=== PATIENT | male | born 1950 | race Caucasian/White ===

== ENCOUNTER → 2020-09-19 | Outpatient (CLI) | payer OTHER ==
[~2020-09-19] MED LIST: AMLODIPINE BESY10 MG PO; ASA81BEC PO; BUPROPION XL300 MG PO; BUSPAR30 MG PO; CALCIUM CITRAT1 EA14 PO; CENTRUM SILVER1 EAC5 PO; CINNAMON500 MG PO; DULOXETINE HCL60 MG PO; GINKGO60 MG PO; LORATIDINE 10 M10 M1 PO; LOSARTAN POTAS100 MG PO; MELOXICAM7.5 MG PO; NEURONTIN 300M300 M2 PO; OMEPRAZOLE 20 M20 M1 PO; PERCOCET 5-3251 EACH PO; PRAVACHOL 20 MG20 M1 PO; TURMERIC500 M2 PO; VITAMIN C1000 MG PO
[2020-09-19 11:14] LABS: HEMATOCRIT 43.1 % (42.0-52.0); HEMOGLOBIN 14.3 gm/dL (14.0-18.0); MCH 32.3 pg (26.0-34.0); MCHC 33.2 g/dL (28.0-37.0); MCV 97.2 fL (80.0-100.0); RBC 4.44 mil/uL (4.50-6.00); RDW 13.1 % (10.5-14.5); WBC 8.1 thou/uL (4.0-11.0)
[2020-09-19 11:20] LABS: URINE BLOOD NEGATIVE (Negative); URINE CLARITY CLEAR; URINE COLOR YELLOW; URINE GLUCOSE-RANDOM* NEGATIVE (Negative); URINE KETONES NEGATIVE (Negative); URINE LEUKOCYTES-REFLEX NEGATIVE (Negative); URINE NITRITE-REFLEX NEGATIVE (Negative); URINE PROTEIN (DIPSTICK) TRACE (Negative); URINE SPECIFIC GRAVITY >= 1.030 (1.005-1.035); URINE UROBILINOGEN 0.2 E.U./dl (0.2-1.0)
[2020-09-19 11:22] LABS: ICTOTEST (BILI CONFIRMATORY) Negative (Negative); URINE BILIRUBIN NEGATIVE (Negative)
[2020-09-19 11:23] LABS: ALBUMIN 3.9 g/dL (3.4-5.0); CALCIUM 9.8 mg/dL (8.5-10.1); CREATININE 1.4 mg/dL (0.7-1.3); POTASSIUM 4.4 mmol/L (3.5-5.1)
[2020-09-19 11:45] LABS: PROTIME 10.9 Seconds (10.5-12.1)
--- NOTE | 2020-09-19 13:07 | EKG ---
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[facility] : 1950 Requested By: Jose Antonio Saavedra Order Number: [id number] MD: Alex Tabares Measurements Intervals [place] Rate: 74 P: 14 UT: 189 QRS: -54 QRSD: 101 T: 56 QT: 375 QTc: 416 Interpretive Statements Sinus rhythm Left anterior fascicular block Consider right ventricular hypertrophy Baseline wander in lead(s) V2 No previous ECG available for comparison Electronically Signed On 09-19-2020 13:07:09 CDT by Alex Tabares [email or web address] <ELECTRONICALLY SIGNED> By: Alex Tabares MD, [facility] 09/19/20 1307 D: [id number] Alex Tabares MD, FACC /EPI
--- NOTE | 2020-09-20 07:17 | EKG ---
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 : 1950 Requested By: Jose Antonio Saavedra Order Number: [id number] MD: Alex Tabares Measurements Intervals [place] Rate: 72 P: 38 NM: 176 QRS: -76 QRSD: 100 T: 13 QT: 387 QTc: 424 Interpretive Statements Sinus rhythm Left anterior fascicular block Consider posterior infarct Nonspecific ST depression Baseline wander in lead(s) I,II,III,aVR,aVL,aVF,V1,V2,V3,V4,V5,V6 No previous ECG available for comparison Electronically Signed On 09-20-2020 7:17:00 CDT by Alex Tabares [email or web address] <ELECTRONICALLY SIGNED> By: Alex Tabares MD, FAC 09/20/20 0717 1114 [id number] Alex Tabares MD, [facility] /EPI
== END ==
LOC: PAC 10:25
PROVIDERS: ATTEND Orthopaedic Surgery
DX: Z01.812 Encounter for preprocedural laboratory examination (principal); Z01.810 Encounter for preprocedural cardiovascular examination; I44.4 Left anterior fascicular block; I21.29 ST elevation (STEMI) myocardial infarction involving other sites

== ENCOUNTER 2020-09-30 10:20 | Inpatient (IN) | payer OTHER ==
[~2020-09-30] VITALS: Ht 175.3 cm; Wt 98.8 kg
[2020-09-30 11:20] VITALS: BP 121/71
[2020-09-30 16:33] VITALS: BP 100/58
--- NOTE | 2020-09-30 17:23 | NUR ---
ASSUMED PT CARE THIS AM. PT A&OX4, ABLE TO MAKE NEEDS KNOWN. PATIENT REPORTING NO PAIN AT THE TIME OF ASSESSMENT ALONG WITH NO NUMBNESS OR TINGLING. IV PATENT. PATIENT IS ON 2 LITERS OF OXYGEN VIA NC. FALL PRECAUTIONS ARE IN PLACE, CALL LIGHT WITHIN REACH.
[2020-09-30 19:36] VITALS: BP 109/64
[2020-10-01 04:19] VITALS: BP 112/59
[2020-10-01] MEDS ORDERED: TRI-BUFFERED A325 M1 PO (07:39)
[2020-10-01] MEDS ORDERED: PERCOCET 10-321 EACH PO (07:39)
[2020-10-01] MEDS ORDERED: MS CONTIN15 MG PO (07:39)
--- NOTE | 2020-10-01 07:44 | O ---
[facility] [place] [address] OPERATIVE REPORT Name: EDINSON VÁSQUEZ Room #: 441-P [facility] M.R.#: [id number] Admission: 09/30/20 Attend Phys: Jose Antonio Saavedra MD Discharge: Date of : 48 Report #: [id number] THIS REPORT FOR: cc: Henry Stein MD, Steven M. MD Abraham, Scott M. MD ~ DATE OF SERVICE: 09/30/2020 PREOPERATIVE DIAGNOSIS: Left hip osteoarthritis. POSTOPERATIVE DIAGNOSIS: Left hip osteoarthritis. PROCEDURE: Left total hip arthroplasty. SURGEON: Jose Antonio Saavedra M.D. ANESTHESIA: LMA. IMPLANTS: A [employer]hew size 15 high offset Synergy press-fit stem, a size 56 R3 acetabular cup with two acetabular screws and a size 40+0 cobalt chrome head as well as a single Accord cerclage cable for prophylactic femur fixation. ESTIMATED BLOOD LOSS: 150 mL COMPLICATIONS: None. SPECIMENS: None. CONDITION UPON LEAVING THE OR: Stable. INDICATIONS FOR PROCEDURE: The patient is a 70-year-old gentleman with severe left hip osteoarthritis. He had failed conservative measures for this and after discussion with him, he elected for left total hip arthroplasty. DESCRIPTION OF PROCEDURE: Risks, benefits, alternatives, complications were discussed in detail with the patient including but not limited to risk of anesthesia, risk of damage to nerves, arteries, blood vessels, risk for infection, bleeding, risk for continued hip pain, leg length discrepancy, DVT, PE, and need for reoperation. Informed consent was obtained from the patient. Left hip was appropriately marked in the preoperative holding area. IV Ancef was given for preoperative antibiotics. He was brought to the operating room and placed in supine position on the operating room table. LMA anesthesia was induced without complication. He was then placed in the right lateral decubitus position with the left hip uppermost. Left hip and lower extremity were prepped and draped in normal sterile fashion. Timeout was performed properly identifying the patient and procedure as well as instrumentation and implants. [address] [address] OPERATIVE REPORT Name: FAHADEDINSON Ricardo Room #: 441-P [facility] M.R.#: [id number] Admission: 09/30/20 Attend Phys: Jose Antonio Saavedra MD Discharge: Date of : 48 Report #: [id number] All in the operating room in agreement. Standard posterior approach to the hip was made with 10 blade through the skin. Dissection was taken down to the fascia with Bovie cautery and Mcguire elevator was used to clean off the fascia. Fresh 10 blade was used to make a fascial incision. This was taken proximally and distally with curved Garcia scissor. Charnley retractor was placed. Trochanteric bursa was taken down with Bovie cautery. Piriformis tendon was identified, tagged and taken down with Bovie cautery. Short external rotators were also taken down with Bovie cautery. ____ and proximal ends were tagged for later repair. Hip was dislocated. There was extensive osteoarthritic change of the femoral head with partial collapse of the femoral head. Femoral neck cut was made 1 cm proximal to the lesser trochanter based on preoperative templating and femoral head was removed. Deep acetabular retractors were placed. Labrum was removed sharply. Pulvinar was removed with Bovie cautery. Acetabulum was then sequentially reamed up to a size 56, at which point there was excellent bleeding cancellous bone. A size 55 trial cup was placed, found to have a good fit. Final size 56 R3 acetabular cup was placed and seated. Two acetabular screws were placed for backup fixation and a polyethylene liner for a 40 head was placed. Attention was then turned to the femur. This was reamed and broached up to a size 15, at which point the size 15 broach was stable. This was trialed with a high offset neck and a 40+0 head. Hip was reduced, taken through range of motion, found to be stable, found to have equal leg lengths. Hip was dislocated. Broach was removed. The single Accord cerclage cable was placed proximal to the lesser trochanter and tensioned and tightened. After prophylactic fixation, a final size 15 high offset Synergy press-fit stem was placed and seated. This was trialed again with a 40+0 head. Hip was reduced, taken through range of motion, found to be stable, and found to have equal leg lengths. Hip was dislocated one last time. A trial head was removed and a final size 40+0 cobalt chrome head was placed. Hip was reduced, taken through range of motion, found to be stable, and found to have equal leg lengths. The wound was thoroughly irrigated with normal saline. A periarticular injection consisting of morphine, ropivacaine, epinephrine, Toradol was placed around the hip joint capsule. A gram of vancomycin was placed deep in the joint capsule and piriformis were repaired with 0 FiberWire. Fascia was closed with 0 Vicryl. Skin was closed with 2-0 Vicryl. Skin staple and a HELEN dressing was applied. The patient tolerated this procedure well and went to recovery room under care of anesthesia postoperatively. <ELECTRONICALLY SIGNED> By: Jose Antonio Saavedra MD 10/01/20 0744 1604 [id number] Jose Antonio Saavedra MD /nt
[2020-10-01 07:51] VITALS: BP 117/67
--- NOTE | 2020-10-01 07:54 | NUR ---
ASSUMED CARE OF PT AT 1925 ON 09/30/20. PT IS A&OX4. IS ON 2L OF O2/NC. IS STABLE. REPORTS PAIN IN LEFT HIP THAT IS BEING MANAGED WITH PAIN MEDS, ICE PACK, & OTHER THERAPUETIC TECHNIQUES. HELEN DRSG C/D/I. PT IS ABLE TO MOVE SELF IN BED. HOWEVER, PAIN MAKES IT DIFFICULT. PT VOIDS PER URINAL. FALL PRECAUTIONS & HOURLY ROUNDING CONTINUED THIS SHIFT. LABS & VITALS REVIEWED. SCDS & TEDS IN PLACE. PT IS ABLE TO WIGGLE TOES. COLOR APPROPRIATE FOR ETHNICITY. CAP REFILL <3 SECONDS. DENIES N/T. CALL LIGHT WITHIN REACH. IN BED. WILL CONTINUE TO MONITOR.
--- NOTE | 2020-10-01 09:57 | NUR ---
ASSUMED PT CARE THIS AM. PT A&OX4, ABLE TO MAKE NEEDS KNOWN. PATIENT ON ROOM AIR. REPORTING PAIN IN THE HIP THAT DECREASES WITH PAIN MEDICATION GIVEN PER EMAR. PATIENT REPORTS NO NUMBNESS OR TINGLING. IV PATENT, FLUIDS INFUSING. FALL PRECAUTIONS ARE IN PLACE, CALL LIGHT WITHIN REACH.
--- NOTE | 2020-10-01 10:40 | NUR ---
assessment: CM REVIEWED CHART AND SPOKE WITH PATIENT AT THE BEDSIDE. PT IS ALERT AND ORIENTED X4. PT REPORTS THAT HE LIVES IN A HOUSE WITH HIS . PT IS S/P LEFT HIP TOTAL ARTHOPLASTY. PT REPORTS HAVING 2 STEPS WITH NO HANDRAIL TO ENTER THE HOME AND NO STEPS HE HAS TO USE ONCE INSIDE. PT REPORTS THAT HE HAS A ROLLATER WALKER WELL A STANDARD WALKER [facility] BUT REPORTS HIS STANDARD WALKER IS EXTRA AND UNSURE WHY HE HAS SUCH A WIDE ONE. PT REPORTS HE IS WANTING A STANDARD WALKER IF POSSIBLE AND HAS NO PREFERENCE OF DME COMPANY. CM NOTIFIED LIASON FROM [employer] WHO IS CHECKING INSURANCE TO SEE IF PT CAN BE PROVIDED A WALKER. PT REPORTS THAT HE HAS OUTPATIENT THERAPY ARRANGED FOR [facility] IN [place] TO BEGIN ON WEDNESDAY. CM DISCUSSED ROLE. CM WILL FOLLOW TO SEE HOW PATIENT DOES WITH THERAPY.
[2020-10-01 15:23] VITALS: BP 107/64
--- NOTE | 2020-10-01 16:47 | NUR ---
ASSUMED PT CARE THIS AM. PT A&OX4, ABLE TO MAKE NEEDS KNOWN. PATIENT ON ROOM AIR. REPROTING PAIN IN THE HIP THAT DECREASES WITH PAIN MEDICATIONS GIVEN PER EMAR. PATIENT REPORTS NO NUMBNESS OR TINGLING. IV PATENT, SALINE LOCKED. FALL PRECAUTIONS ARE IN PLACE, CALL LIGHT WITHIN REACH.
[2020-10-01 21:25] VITALS: BP 123/68
[2020-10-02 04:00] VITALS: BP 114/65
--- NOTE | 2020-10-02 04:51 | NUR ---
ASSESSED AT START OF SHIFT. PT C/O PAIN MANAGED BY PO PAIN MEDICATION. UP WITH ASSISTX2 TO THE BSC. EVENING MEDS GIVEN AND PT BRANDON IT WELL. FALL PREC MIANTAINED. ICE BAG ON LEFT HIP. URINAL BY BEDSIDE. PT HAD INCONTINENTX2 OVER NIGHT. TYELNOL GIVEN FOR LOW TEMP 100.2 BED BATH PROVDED TEMP 98.9 AFTERWARDS WILL CONT TO MONITOR.
[2020-10-02 08:39] VITALS: BP 114/65
--- NOTE | 2020-10-02 13:51 | NUR ---
PT said patient will be able to D/C tomorrow. A/O x 4. Room air. Stand by assist with walker. Having left hip pain and pain medication given.
[2020-10-02 15:18] VITALS: BP 123/70
--- NOTE | 2020-10-02 15:47 | NUR ---
on-going assessment: CM REVIEWED CHART. PER ATTENDINGS PROGRESS NOTE PAIN IS BETTER CONTROLLED BUT PT NEEDING TO CONTINUE WITH PHYSICAL THERAPY. LIKELY STAYING OVERNIGHT AND WORKING WITH PHYSICAL THERAPY THEN DISCHARGE TOMORROW.
[2020-10-02 19:46] VITALS: BP 128/68
--- NOTE | 2020-10-03 02:06 | NUR ---
ASSESSED AT START OF SHIFT. PT RESTING IN BED. EVENING MEDS GIVEN AND PT BRANDON IT WELL. UP WITH ASSISTX1. FALL PREC IN PLACE. NO FUTHER SIGNS OF DISCOMFORT WILL CONT TO MONITOR.
[2020-10-03 04:35] VITALS: BP 110/69
[2020-10-03 07:02] VITALS: BP 124/69
[2020-10-03 09:17] VITALS: BP 114/65
--- NOTE | 2020-10-03 09:19 | NUR ---
ON-GOING ASSESSMENT: CM REVIEWED CHART AND SPOKE WITH PATIENT AT THE BEDSIDE. CM RECEIVED A CONSULT STATING PT NEEDING HOME HEALTH AT DISCHARGE. CM MET WITH PATIENT AT THE BEDSIDE AND PT IS AGREEABLE WITH HOME HEALTH CARE AND REPORTS HIS HAS HAD [facility] IN THE PAST AND PREFERS TO USE THEM. CM NOTIFIED LIAJAMIE JAMES AT [facility] WHO REPORTS THEY CAN ACCEPT PT AND SHE WILL GATHER ALL THE NEEDED PAPERWORK AT TIME OF DISCHARGE. PT IS LIKELY DISCHARGING HOME TODAY AFTER WORKING WITH THERAPY. CM SPOKE WITH PATIENTS WHO IS AGREEABLE WITH THE PLAN.
[2020-10-03 09:40] VITALS: BP 124/69
--- NOTE | 2020-10-03 10:48 | NUR ---
A/O X 4. Room air. Stand by assist w/ walker- slow steady gait. IV removed, pressure and gauze appiled. Bilateral teds on. Nurse went over D/C teaching with patient. [facility] PATRICIA following at home. His daughter in law is picking him up for discharge.
== END 2020-10-03 12:21 | disposition home health service (06) | DRG 470 ==
LOC: OR 10:20 → TBA 10:49 → EDSTATUS 11:14 → OR 11:36 → 4S 15:51 → OR 15:52 → 4S 10-03 12:21
PROVIDERS: ADMIT Orthopaedic Surgery; ATTEND Orthopaedic Surgery
PROC: 0SRB02A Replacement of Left Hip Joint with Metal on Polyethylene Synthetic Substitute, Uncemented, Open Approach (ICD-10-PCS; principal; 2020-09-30)
DX: M16.12 Unilateral primary osteoarthritis, left hip (principal); Z20.822 Contact with and (suspected) exposure to COVID-19; Z88.0 Allergy status to penicillin
CPT/HCPCS: 10102; 10195; 50010; 50101; 50382; 50414; 51412; 53000; 53078; 53368; 56528; 56530; 57095; 57103; 57496; 58524; 62110; 62900; 70005